=== PATIENT | female | born 1935 | race Caucasian/White ===

== ENCOUNTER 2017-01-28 11:49 | Emergency (ER) | payer OTHER ==
[~2017-01-28] VITALS: Ht 157.5 cm; Wt 68.5 kg
[2017-01-28] MEDS ORDERED: RED YEAST RICE600 MG PO (14:01)
[2017-01-28] MEDS ORDERED: VALSARTAN160 MG PO (14:01)
[2017-01-28] MEDS ORDERED: vitamins (14:02)
[2017-01-28 16:29] VITALS: BP 191/83
== END 2017-01-28 16:30 | disposition home or self-care (01) ==
LOC: EME 11:49
DX: R22.41 Localized swelling, mass and lump, right lower limb (principal); M79.604 Pain in right leg; I83.891 Varicose veins of right lower extremity with other complications; I10 Essential (primary) hypertension
CPT/HCPCS: 93971; 99281; 99283

== ENCOUNTER 2017-11-06 16:00 | Observation (INO) | payer OTHER ==
[~2017-11-06] VITALS: Ht 162.6 cm; Wt 65.8 kg
[~2017-11-06 16:00] MED LIST: RED YEAST RICE600 MG PO; VALSARTAN160 MG PO; VITAMIN D2000 UNI1 PO
[2017-11-06 20:07] LABS: HEMATOCRIT 43.7 % (36.0-46.0); MCH 31.8 PG (29.0-34.0); MCHC 34.3 G/DL (30.0-36.0); MCV 92.8 FL (83-99); PLATELET COUNT 333 K/uL (156-360); RBC DIS.WIDTH-CV 13.5 % (11.8-14.6); RBC DIS.WIDTH-SD 46.5 % (39-53); RED BLOOD COUNT 4.71 M/uL (3.80-5.20); WHITE BLOOD COUNT 9.6 K/uL (4.1-10.2)
[2017-11-06 20:19] LABS: ALBUMIN 4.3 g/dL (3.2-4.8); CHLORIDE 105 mEq/L (99-109); POTASSIUM 4.3 mEq/L (3.7-5.4); SODIUM 141 mEq/L (136-147)
[2017-11-06 20:21] LABS: GLUCOSE 89 mg/dL (70-99)
[2017-11-06 20:22] LABS: TOTAL PROTEIN 7.1 g/dL (6.4-8.3)
[2017-11-06 20:23] LABS: TOTAL BILIRUBIN 0.5 mg/dL (0.0-1.0)
[2017-11-06 20:24] LABS: APPEARANCE CLEAR ((CLEAR)); BILIRUBIN NEGATIVE; BLOOD NEGATIVE; COLOR STRAW ((YELLOW)); GLUCOSE (STRIP) NEGATIVE; KETONES NEGATIVE; LEUKOCYTES TRACE; NITRITE NEGATIVE; PROTEIN (STRIP) NEGATIVE; UROBILINOGEN 0.2 MG/DL (0.2-1.0)
[2017-11-06 20:25] LABS: ALKALINE PHOSPHATASE 78 IU/L (3-129); CREATININE 0.8 mg/dL (0.6-1.3); GFR ESTIMATE (CALCULATED) > 59 mL/min/
[2017-11-06 20:26] LABS: UREA NITROGEN (BUN) 17 mg/dL (9-23)
[2017-11-06 20:27] LABS: AST (GOT) 26 IU/L (2-34)
[2017-11-06 20:28] LABS: ALT (GPT) 26 IU/L (3-49)
[2017-11-06 20:28] LABS: BACTERIA RARE /HPF; EPITHELIAL CELLS RARE /HPF; MUCUS TRACE /LPF; RED BLOOD CELLS 0-5 /HPF (0-5); UCUL ADDED? NO; WHITE BLOOD CELLS 0-5 /HPF (0-5)
[2017-11-06 20:30] LABS: TROP-I INTERPRETATION NEGATIVE; TROPONIN-I < 0.01 ng/mL (0.0-0.30)
[2017-11-06 21:32] LABS: THYROTROPIN (TSH) 1.6 MIU/L (0.4-5.5)
[2017-11-06] MEDS ORDERED: ASCORBIC ACID500 M3 PO (21:56)
[2017-11-06] MEDS ORDERED: CAL-MAG COMPLE1 EACH PO (21:57)
[2017-11-07 00:12] LABS: D-DIMER ELISA < 150.00 ng/mLDDU (<230)
[2017-11-07 00:28] LABS: HDL CHOLESTEROL 67 MG/DL (Desirable>=50); LDL CHOLESTEROL 109 mg/dL (Desirable<100); NON-HDL CHOLESTEROL 126 mg/dL (Desirable<160); TOTAL CHOLESTEROL 193 mg/dL (Desirable<200); TRIGLYCERIDES 83 MG/DL (Normal: <150)
[2017-11-07 03:15] LABS: HEMATOCRIT 41.5 % (36.0-46.0); HEMOGLOBIN 14.3 G/DL (11.9-15.5); MCH 32.1 PG (29.0-34.0); MCHC 34.5 G/DL (30.0-36.0); PLATELET COUNT 321 K/uL (156-360); RBC DIS.WIDTH-CV 13.6 % (11.8-14.6); RBC DIS.WIDTH-SD 46.6 % (39-53); RED BLOOD COUNT 4.46 M/uL (3.80-5.20); WHITE BLOOD COUNT 10.3 K/uL (4.1-10.2)
[2017-11-07 03:25] LABS: CHLORIDE 106 mEq/L (99-109); POTASSIUM 3.8 mEq/L (3.7-5.4); SODIUM 141 mEq/L (136-147)
[2017-11-07 03:27] LABS: GLUCOSE 98 mg/dL (70-99)
[2017-11-07 03:31] LABS: CREATININE 0.8 mg/dL (0.6-1.3); GFR ESTIMATE (CALCULATED) > 59 mL/min/
[2017-11-07 03:32] LABS: UREA NITROGEN (BUN) 18 mg/dL (9-23)
[2017-11-07 03:40] LABS: TROP-I INTERPRETATION NEGATIVE; TROPONIN-I < 0.01 ng/mL (0.0-0.30)
[2017-11-07 08:28] LABS: TROP-I INTERPRETATION NEGATIVE; TROPONIN-I < 0.01 ng/mL (0.0-0.30)
[2017-11-07 08:44] VITALS: BP 195/88
[2017-11-07 09:30] LABS: HEMOGLOBIN A1c (GLYCOHEMOGLOB) 5.9 % (Below 5.7)
[2017-11-07 11:40] VITALS: BP 194/86
[2017-11-07] MEDS ORDERED: NIFEDIPINE ER30 MG PO (12:24)
[2017-11-07] MEDS ORDERED: ASPIR-LOW81 MG PO (12:25)
[2017-11-07 13:15] VITALS: BP 148/72
[2017-11-07 14:45] VITALS: BP 142/82
== END 2017-11-07 16:09 | disposition home or self-care (01) ==
LOC: EME 16:00 → EDOF 23:29 → ENRESERV 23:30 → 5WEST 11-07 01:33 → ENPENDDIS 11-07 14:06 → 5WEST 11-07 16:09
PROVIDERS: Emergency Medicine; Hospitalist
DX: R07.9 Chest pain, unspecified (principal); R94.31 Abnormal electrocardiogram [ECG] [EKG]; I10 Essential (primary) hypertension; E23.6 Other disorders of pituitary gland; Z86.73 Personal history of transient ischemic attack (TIA), and cerebral infarction without residual deficits; R42 Dizziness and giddiness; R20.2 Paresthesia of skin; R51 Headache; Z88.6 Allergy status to analgesic agent
CPT/HCPCS: 70450; 70551; 71045; 80048; 80053; 80061; 81003; 83036; 84443; 84484; 85027; 85379; 93005; 93880; 99281; 99285; G0378; J1644